=== PATIENT | male | born 1955 | race Native Hawaiian/Other Pacific Islander ===

== ENCOUNTER 2019-08-02 09:36 | Emergency (ER) | payer OTHER ==
[~2019-08-02] VITALS: Ht 185.4 cm; Wt 93.0 kg
[2019-08-02 09:44] VITALS: TEMP 97.9
[2019-08-02 10:15] LABS: PLATELET COUNT 215 K/uL (142-355)
[2019-08-02 10:23] LABS: POTASSIUM 4.2 mmol/L (3.6-5.2); SODIUM 142 mmol/L (136-145)
[2019-08-02] MEDS ORDERED: METF500T PO (11:06)
[2019-08-02] MEDS ORDERED: ZESTRIL40 MG PO (11:06)
[2019-08-02] MEDS ORDERED: GEMFIBROZIL PO (11:08)
[2019-08-02] MEDS ORDERED: AMLODIPINE BESYLATE PO (11:09)
[2019-08-02 12:25] VITALS: BP 147/90
== END 2019-08-02 12:25 | disposition home or self-care (01) ==
LOC: ED 09:36
PROVIDERS: Hospitalist
DX: I10 Essential (primary) hypertension (principal); E11.9 Type 2 diabetes mellitus without complications; J32.9 Chronic sinusitis, unspecified; R00.1 Bradycardia, unspecified
CPT/HCPCS: 36415; 80053; 82550; 83880; 84484; 85027; 85610; 85730; 93005; 96374; 99284; J1885; J2405

== ENCOUNTER 2021-05-22 21:06 | Inpatient (IN) | payer OTHER ==
[~2021-05-22] VITALS: Ht 182.9 cm; Wt 94.5 kg
[2021-05-22 21:06] VITALS: BP 134/68; TEMP 100.4
[~2021-05-22 21:06] MED LIST: AMLODIPINE BESYLATE PO; GEMFIBROZIL PO; METF500T PO; ZESTRIL40 MG PO
[2021-05-22 21:30] VITALS: BP 135/65
[2021-05-22 21:37] LABS: PLATELET COUNT 291 K/uL (142-355)
[2021-05-22 21:42] LABS: POTASSIUM 4.3 mmol/L (3.6-5.2); SODIUM 128 mmol/L (136-145)
[2021-05-22 21:55] LABS: PARTIAL THROMBOPLASTIN TIME 24.1 SECONDS (24.5-33.6)
[2021-05-22 22:00] VITALS: BP 119/67
[2021-05-22] MEDS ORDERED: AMLODIPINE BESYLATE PO (22:10)
[2021-05-22 22:30] VITALS: BP 126/62
[2021-05-22 23:00] VITALS: BP 132/63
[2021-05-22 23:30] VITALS: BP 124/66
[2021-05-23] VITALS (31 sets, daily range): BP systolic 119–153; BP diastolic 54–73; TEMP 97.1–98
[2021-05-24] VITALS (15 sets, daily range): BP systolic 117–151; BP diastolic 55–73; TEMP 154.4
[2021-05-24 05:56] LABS: PLATELET COUNT 277 K/uL (142-355)
[2021-05-24 06:18] LABS: POTASSIUM 4.8 mmol/L (3.6-5.2)
[2021-05-25 05:18] VITALS: BP 102/65
[2021-05-25 05:28] LABS: PLATELET COUNT 277 K/uL (142-355)
[2021-05-25 05:47] LABS: POTASSIUM 5.8 mmol/L (3.6-5.2)
[2021-05-25 06:10] VITALS: BP 98/58
[2021-05-25 07:00] VITALS: BP 110/61; TEMP 97.1
[2021-05-25 07:30] VITALS: BP 108/70
--- NOTE | 2021-05-25 17:00 | NUR ---
REC'D PT VIA STRETCHER FROM ER. PT ON VENT WITH 7.5 ET TUBE, 23 AT LIP LINE. PT HAS DIPRIVAN AT 25MCG, VERSED AT 8ML/HR BOTH INFUSING VIA PUMP INTO RIGHT WRIST. PT HAS VEC 0.5MCG INFUSING VIA PUMP TO LEFT WRIST. PT TRANSFERRED TO BED X4 PERSON ASSIST. NO DISTRESS NOTED.
--- NOTE | 2021-05-25 20:05 | NUR ---
PICC LINE INSERTED BY SANDY MORENO TO R UPPER ARM.
--- NOTE | 2021-05-25 23:18 | NUR ---
SPOKE WITH DR. NELSON, REPORTED THAT PT HAS + HEMOCCULT. NEW TELEPHONE ORDER FOR H&H NOW THEN REPORT RESULTS TO DR. NELSON.
[2021-05-26 02:46] LABS: PLATELET COUNT 306 K/uL (142-355)
[2021-05-26 03:08] LABS: PARTIAL THROMBOPLASTIN TIME 21.6 SECONDS (24.5-33.6)
[2021-05-26 03:47] VITALS: BP 144/72; TEMP 98.5; Ht 182.9 cm; Wt 94.5 kg
--- NOTE | 2021-05-26 05:00 | NUR ---
[id number] PT TO R SIDE, FEET ELEVATED ON PILLOWS, WILL MONITOR, NO ACUTE DISTRESS NOTED.
--- NOTE | 2021-05-26 06:44 | NUR ---
SPOKE WITH DR. NELSON ABOUT PT'S HEART RATE 125-133, AXILLARY TEMP OF 100.4. NEW TELEPHONE ORDER FOR TYLENOL 1000MG IV X 1 DOSE NOW AND BLOOD CULTURES X 2 NOW. R&V.
--- NOTE | 2021-05-26 07:57 | NUR ---
AXILLARY TEMP NOW 99.6.
--- NOTE | 2021-05-26 09:11 | NUR ---
DECREASED FIO2 TO 70% at [address] NELSON.
--- NOTE | 2021-05-26 11:47 | NUR ---
PT SPO2 AT 99% AT FIO2 OF 70%. DECREASED FIO2 TO 65%. SPO2 NOW AT 97-98% WILL CONTINUE TO MONITOR.
[2021-05-26 18:17] LABS: PARTIAL THROMBOPLASTIN TIME 41.2 SECONDS (24.5-33.6)
--- NOTE | 2021-05-27 01:27 | NUR ---
GLUCOSE 377. PATIENT GIVEN 8 UNITS OF REGULAR.
--- NOTE | 2021-05-27 01:56 | NUR ---
PATIENTS CURRENT BLOOD PRESSURE 160/90 WITH HR-110. PATIENT GIVEN LABETALOL 10 MG GIVEN PRN. WILL REASSESS FOR DECREASE IN HR AND BLOOD PRESSURE.
[2021-05-27 02:02] LABS: PARTIAL THROMBOPLASTIN TIME 56.9 SECONDS (24.5-33.6)
--- NOTE | 2021-05-27 02:10 | NUR ---
SODIUM BICARB GIVEN IV PUSH X1 PER . REPEAT ABG. BLOOD PRESSURE READING 72/54 ON ART LINE. AT THE BEDSIDE. NOTIFIED THAT BLOOD SUGARS ARE REMAINING ABOVE 500 WITH LAB CONFIRMATION. NEW ORDERS WERE GIVEN TO CHECK BLOOD SUGARS Q2 AND AND COVER WITH REGULAR INSULIN. STATED TO COVER WITH 15 UNITS OF REGULAR INSULIN IF SUGAR STAYED HIGH.
--- NOTE | 2021-05-27 04:30 | NUR ---
PATIENT NOTED WITH DECREASE O2 SATS IN THE 80'S. PATIENT IN LINE SUCTIONED AND LAVAGED WITH SALINE. SMALL BLOOD CLOTS NOTED IN SUCTION TUBE. PATIENT GIVEN 100% 02 TO INCREASE O2 SATS WITH NO SUCCESS. PATIENT REPOSITIONED ON TO HIS LEFT SIDE BUT 02 SATS STILL STAYING IN THE UPPER 70'S. PATIENTS HR INCREASING IN THE 128-130. EKG ORDERED AND IT READ SINUS TACHYCARDIA HR-127 BORDERLINE PROLONGED QT INTERVAL. SPO2 STILL RUNNING IN THE LOW 80'S. NOTIFIED AT THIS TIME. HERE AND SHE MADE ADJUSTMENTS TO VENT SETTINGS 85%, PEEP 14. PATIENT BAGGED
[2021-05-27 07:55] LABS: PLATELET COUNT 251 K/uL (142-355)
[2021-05-27 08:19] LABS: POTASSIUM 5.9 mmol/L (3.6-5.2)
--- NOTE | 2021-05-27 15:11 | NUR ---
DECREASED O2 TO 60% TOLERATED WELL SPO2 97% HR 100 TOLERATED WELL
--- NOTE | 2021-05-27 16:34 | NUR ---
INCREASED O2 BACK TO 70% DUE TO O2 PER BLOOD GAS
--- NOTE | 2021-05-27 16:51 | NUR ---
INCREASED RR TO 32 PER PHONE CONVERSATION WITH DR NELSON
[2021-05-28 00:11] LABS: POTASSIUM 5.9 mmol/L (3.6-5.2)
--- NOTE | 2021-05-28 01:32 | NUR ---
PATIENTS BLOOD SUGER WAS OVER [address] NELSON NOTIFIED. ORDERED 25UNITS OF REGULAR INSULIN. MD ORDERED BLOOD SUGERS Q2 HOURS. BLOOD SUGER CHECKED AGAIN AFTER ORDER AND IT WAS 533. NEST BLOOD SUGER CHECK AT 0300
[2021-05-28 05:43] LABS: PLATELET COUNT 221 K/uL (142-355)
[2021-05-28 06:12] LABS: POTASSIUM 5.4 mmol/L (3.6-5.2)
--- NOTE | 2021-05-28 10:20 | NUR ---
AT 0935 INCREASDE FIO2 100% PER DR. NELSON.
[2021-05-28 11:37] LABS: POTASSIUM 5.1 mmol/L (3.6-5.2)
[2021-05-28 15:11] LABS: PARTIAL THROMBOPLASTIN TIME 80.2 SECONDS (24.5-33.6)
--- NOTE | 2021-05-28 15:31 | NUR ---
ETT MOVED TO LEFT SIDE OF PT MOUTH. SPO2 ATN 95-96%. RT DECREASED FIO2 FROM 100% TO 90%. SPO2 AT 94%. WILL CONTINUE TO MONITOR TO ENSURE PT CAN TOLERATED WEANING.
--- NOTE | 2021-05-28 19:34 | NUR ---
191-PT SPO2 AT 85-86% INCREASED PEEP TO 12. SPO2 NOW AT 90% 1924-DECREASED RR TO 28 POST ABG.
[2021-05-28 20:15] LABS: PLATELET COUNT 168 K/uL (142-355)
[2021-05-28 20:18] VITALS: BP 101/54; TEMP 98.8
[2021-05-28 20:32] LABS: POTASSIUM 5.2 mmol/L (3.6-5.2); SODIUM 137 mmol/L (136-145)
--- NOTE | 2021-05-28 20:32 | NUR ---
0800 GLUCOSE CHECK 569 20UNITS IV GIVEN PER MD ORDER 0950 [id number] 15 UNITS INSULIN GIVEN IV PER MD ORDERS 1130 FSBS 424 10UNITS INSULIN GIVEN PER MD ORDER 1340 FSBS 332 10UNITS IV GIVEN PER MD ORDERS 1530 FSBS 256 8 UNITS SQ GIVEN PER MD OORDER NEW ORDER GIVEN TO RESUME FSBS WITH SSI .
--- NOTE | 2021-05-28 20:37 | NUR ---
0858 HEPARIN DRIP ADJUSTED PER PROTOCOL ACCORDING TO LAB RESULTS 1100 OPEN AREA TO LEFT BUTTOCK OBSERVED 1.4CMX1.5CM X0.2CM DURING BED BATH. AREA CLEANED AND COVERED PER ORDERS. 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 ORDERS CARRIED OUT. 1900 PT HR IMPROVING HR IS NOW 92
--- NOTE | 2021-05-28 21:20 | NUR ---
REPORTED LABS TO AND NEW ORDERS WERE GIVEN TO GIVE NS 500 ML BOLUS X1 AND MONITOR OUTPUT AT LEAST 30 ML/HR. STOP KETAMINE DRIP AT THIS TIME. REPEAT ABG AT 2200.
--- NOTE | 2021-05-28 22:13 | NUR ---
ABG DONE AND REPORTED TO . FIO2 DECREASED TO 90% AND PEEP DECREASED TO 10.
--- NOTE | 2021-05-28 22:34 | NUR ---
NS BOLUS COMPLETE.
--- NOTE | 2021-05-28 22:44 | NUR ---
PTT 51.3 RETURNED AND NO CHANGES NEEDED ON HEPARIN DRIP.
[2021-05-28 23:41] VITALS: BP 122/59; TEMP 98.8
--- NOTE | 2021-05-29 00:17 | NUR ---
RT AT THE BEDSIDE AND PATIENTS 02 SATS 89%. FIO2 INCREASED 95%. CURRENT HR IS 116-128 ON AMIODORONE 33.3 ML/HR. WILL CONTINUE TO MONITOR.
--- NOTE | 2021-05-29 00:24 | NUR ---
PATIENT GETTING BREATHING TREATMENT AT THIS TIME.
--- NOTE | 2021-05-29 02:11 | NUR ---
PATIENT NOTED WITH LOW 02 SATS ON MONITOR READING 85%. PATIENT REPOSITIONED AND 02 MONITOR READJUSTED WITH NO IMPROVEMENT. PATIENT REMAINS WITH INCREASED HR -122-130BPM. RT NOTIFIED. PATIENT WAS IN LINE SUCTIONED AND NO MUCOUS NOTED ON RETURN. RT IS AT THE BEDSIDE ADJUSTING VENT. PEEP INCREASED TO 18. CURRENT SPO2 94%.
[2021-05-29 03:42] VITALS: BP 117/61; TEMP 98.6
--- NOTE | 2021-05-29 04:09 | NUR ---
AT THE BEDSIDE. HR 130 ON AMIODORONE DRIP 16.6 ML/HR. NEW ORDERS TO GIVE NS 500 ML BOLUS X1. CARDIZEM 5 MG IV PUSH X1. CARDIZEM DRIP ORDERED AT THIS TIME. ABG X1.
--- NOTE | 2021-05-29 04:30 | NUR ---
URINE OUTPUT REPORTED TO --0 ML POST 500 NS BOLUS.
--- NOTE | 2021-05-29 05:12 | NUR ---
LASIX 10 MG GIVEN IVP PER .
[2021-05-29 05:16] LABS: PLATELET COUNT 162 K/uL (142-355)
[2021-05-29 05:38] LABS: POTASSIUM 5.5 mmol/L (3.6-5.2)
--- NOTE | 2021-05-29 08:27 | NUR ---
ETT MOVED TO THE RIGHT SIDE OF PT MOUTH. RT ATTEMPTED TO LAVAGE AND SX PT WITH LITTLE TO NO RETURN ONLY SCANT SALINE RETURN. PIP BETWEEN 53-60. SPO2 AT 93%
--- NOTE | 2021-05-29 09:41 | NUR ---
RT ATTEMPTED TO RETRIEVE SPUTUM SAMPLE TWICE WITH LAVAGE AND SX. RT HAS NO RETURN FOR SAMPLE COLLECTION.
--- NOTE | 2021-05-29 10:15 | NUR ---
DR NELSON HERE AT THIS TIME. PTT RESULTS BACK AT THIS TIME 97.1. PER PROTOCOL HOLD FOR [address] NELSON AWARE. HOLD FOR THIS TIME PER .
--- NOTE | 2021-05-29 11:50 | NUR ---
DR WYNNE AT BS AGAIN AT THIS TIME. NEW ORDERS REC'D TO START LASIX DRIP AND GIVE ALBUMIN X 2. AFTER ALBUMIN INFUSES MAY START IVF'S WITH SODIUM BICARB BACK PER .
--- NOTE | 2021-05-29 12:00 | NUR ---
VERBAL ORDERS REC'D PER MD TO HOLD HEAPRIN AT THIS TIME.
--- NOTE | 2021-05-29 13:00 | NUR ---
NO URINARY OUTPUT NOTED AT THIS TIME. AWARE.
--- NOTE | 2021-05-29 14:00 | NUR ---
DECREASED PEEP TO 16. SPO2 AT 96%.
--- NOTE | 2021-05-29 15:27 | NUR ---
i have called the below facilities to look for a cardiac/dialysis ICU bed: [facility] [phone] no beds [facility] [phone] no beds, check after 9am tomorrow [facility] [phone] at capacity [facility] [phone] [facility] [phone] no beds, 20 in ER, call back matthew [facility] [phone] no beds [facility] [phone] on diversion [facility] [phone] no beds [facility] transfer [facility] [phone] at [facility] x 1 month [place] [phone] [place] [phone]/ fx [phone], at [facility], declined [place] [phone]/ fx [phone], at [facility], declined [facility] [phone] no capacity for out of state transfers, check back in 24 hrs
--- NOTE | 2021-05-29 16:00 | NUR ---
IV PLACED PER Gunnar VERDUZCO RN INTO LEFT FA 20G. ALSO ART LINE PLACED AT THIS TIME PER MD ORDERS. PT TOELRATED WELL. NO PROBLEMS NOTED.
--- NOTE | 2021-05-29 16:36 | NUR ---
i called the below facilities to look for ICU cardiac/dialysis bed for transfer: [facility] [phone] [facility] [phone] left [facility] [phone] no beds, will put on wait list [facility] [phone] on total diversion x 4 weeks [place] [phone] on total diversion [facility] [phone] no capacity [place] [phone] on diversion [facility] [phone] on diversion for everything except Peds
--- NOTE | 2021-05-29 18:05 | NUR ---
PT HAS NO SEDATION GOING AT THIS TIME. PT CURRENTLY HAS LASIX DRIP INFUSING VIA PUMP AT 20ML/HR, AMIODARONE IFUSING VIA PUMP AT 30.6MG/HR ALONG WITH CARDIZEM AT 7MG/HR. ART LINE INTACT TO LEFT ;WRIST ALONG WITH NEW IV 20G TO LEFT LOWER FA AT THIS TIME.
--- NOTE | 2021-05-29 18:18 | NUR ---
DR NELSON CALLED WITH NEW ORDERS TO GIVE ZAROXLYN VIA NGT ONCE AT THIS TIME. WILL PUT ORDER INTO [facility].
[2021-05-29 20:00] VITALS: TEMP 98.4
--- NOTE | 2021-05-29 22:30 | NUR ---
CALLED DR NELSON TO NOTIFY HER THAT PT'S RECTAL TUBE WAS LEAKING AND HAD BEEN REMOVED BY TERMINAL OPERATOR. ALSO INFORMED HER THAT PT'S O2 SATS WERE BETWEEN [address] NELSON SPOKE WITH RESPIRATORY THERAPIST WHO WAS ALSO A PT'S BEDSIDE AND CHANGED PT'S PEEP PRESSURE TO 18.
[2021-05-29 22:45] LABS: PLATELET COUNT 180 K/uL (142-355)
[2021-05-29 22:53] LABS: POTASSIUM 5.9 mmol/L (3.6-5.2)
--- NOTE | 2021-05-29 23:00 | NUR ---
DR NELSON AT BEDSIDE. PT HAS BLOOD CLOTS IN LYNN TUBING WITH NO URINE OUTPUT. LYNN FLUSHED WITH 100 ML OF NS. 100ML OF OUTPUT RETURNED. DISCONTINUED LYNN AND INSERTED NEW ONE PER DR. NELSON'S ORDERS. 18 DANISH LYNN INSERTED AND BULB INFLATED WITH 10 ML OF NORMAL SALINE. PT TOLERATED PROCEDURE WELL. NAD NOTED.
[2021-05-30] VITALS: TEMP 100.7
--- NOTE | 2021-05-30 01:42 | NUR ---
PTS PEEP WAS INCREASED FROM [address] NELSON AT 5949
[2021-05-30 04:00] VITALS: TEMP 98.6
[2021-05-30 06:23] VITALS: BP 90/60
--- NOTE | 2021-05-30 06:30 | NUR ---
MANUAL BP OBTAINED ON PT FROM POPLITE[facility] PULSE. READING OF 90/60. DR NELSON CALLED AND NOTIFIED OF BP. NAD NOTED OF PT.
[2021-05-30 07:17] LABS: PLATELET COUNT 174 K/uL (142-355)
--- NOTE | 2021-05-30 07:30 | NUR ---
ART LINE ZERO AT THIS TIME. ARTERIAL BP 80/42 MAP 51. REPORTED TO
--- NOTE | 2021-05-30 07:45 | NUR ---
ORDERS REC'D TO START DOPAMINE AT 3MIC AT THIS TIME. 0747 DOPAMINE STARTED PER MD ORDERS.
--- NOTE | 2021-05-30 07:58 | NUR ---
INCREASED DOPAMINE 5MCG AT THIS TIME.
--- NOTE | 2021-05-30 11:45 | NUR ---
i have again tried locating an ICU dialysis/cardiac bed for pt at Dr. Arce's request, i have reached out to the below facilities today: [facility] [phone] (all [facility] facilities) no beds avail [facility] [phone] at cap, no beds [facility] [phone] all fac on closure, no list at this time [facility] [phone] NO BEDS, 12 IN ER, CK BACK 3-4PM [facility] [phone] AT [facility], ON THE LIST, CK BACK AT 2-3PM [facility] reg med ctr [phone], no beds, 15 in er, on full diversion [facility] [phone] holding 12 in er, no beds [facility] [phone] at [facility] no beds [place] [phone] no beds, on surge plan [place] [phone] on ICU saturation [place] [phone] not accepting transfers due to cap [facility] [phone] no beds, at [facility], check tomorrow [place] [phone] on total closure
[2021-05-30 13:37] LABS: POTASSIUM 6.5 mmol/L (3.6-5.2)
--- NOTE | 2021-05-30 14:20 | NUR ---
CRITICAL LABS GIVEN TO DR NELSON AT THIS TIME FROM BMP RESULTS.
--- NOTE | 2021-05-30 16:05 | NUR ---
HR NOTED TO BE 118-124 WITH BP 107/54
--- NOTE | 2021-05-30 18:55 | NUR ---
HR NOTED TO BE 110-120 WITH BP OF 100/51 MAP OF 73 SO CARDIZEM 2.5MG GIVEN IVP PER MD ORDERS AT THIS TIME.
[2021-05-30 20:00] VITALS: TEMP 98.4
--- NOTE | 2021-05-30 20:02 | NUR ---
1318 AX TEMP 97.8 1550 AX TEMP 97.6
[2021-05-30 22:13] LABS: POTASSIUM 5.9 mmol/L (3.6-5.2)
--- NOTE | 2021-05-30 23:27 | NUR ---
PT INCONT OF LOOSE STOOL, PT CLEANED AND DRYED, REPOSTIONED.
[2021-05-31 00:01] VITALS: TEMP 98.2
[2021-05-31 04:00] VITALS: TEMP 97.8
--- NOTE | 2021-05-31 05:10 | NUR ---
AM LAB DRAW, BLOOD OBTIANED FROM ARTLINE
[2021-05-31 05:23] LABS: PLATELET COUNT 201 K/uL (142-355)
--- NOTE | 2021-05-31 06:02 | NUR ---
CHEST XRAY DONE
[2021-05-31 06:06] LABS: POTASSIUM 6.2 mmol/L (3.6-5.2)
--- NOTE | 2021-05-31 06:12 | NUR ---
ABG DONE, BLOOD OBTAINED FROM ARTLINE PER RT
--- NOTE | 2021-05-31 19:14 | NUR ---
REPORT RECEIVED FROM DIANA SALDANA RN. PATIENT REMAINS ON VENT AND DRIPS. CURRENT SPO2 81% WITH FIO2 100%. LASIX DRIP COMPLETE. 2000- WHILE ROUNDING ON PCU PATIENTS NURSE CALLED ME TO ICU NURSES STATION AND STATED ICU 2 RHYTHM WAS ABNORMAL. MONITOR SHOWING VTACH HR-213. EPI X1 GIVEN. PATIENT DNR- UNABLE TO DO CPR. NO CHANGES NOTED ON MONITOR. 2009- PATIENTS PUPILS ASSESSED AND THEY WERE NOTED DILATED AND FIXED. PRONOUNCED PATIENT AT THIS TIME. 2015- NOTIFIED FAMILY. 2047-[employer] NOTIFIED. PATIENT RULED OUT FOR ORGAN AND EYE DONATION [place] [facility] # [id number] 2124- POST MORTEM CARE DONE AT THIS TIME. 2199-[facility] NOTIFIED. 2249- [facility] HERE TO HARBORMASTER BODY. PATIENTS YELLOW WEDDING BAND AND WIFES ( SCOOBY BONILLA) WEDDING BAND GIVEN TO STAFF AT THIS TIME. .. 0 ............[phone]
--- NOTE | 2021-05-31 20:38 | NUR ---
0955 DOPAMINE RATE INCREASED TO 7MCG 0955 SODIUM BICARB BOLUS [id number] INFUSED AT THIS TIME 1006 1ST ALBUMIN ADMINISTERED VIA IVPB PER DR. NELSON'S ORDERS 1007 CALCIUM CHLORIDE ADMINISTERED PER PHYSICIAN ORDERS 1350 2ND ALBUMIN BEGAN INFUSING AT THIS TIME WITHOUT DIFFICULTY
== END 2021-05-31 22:50 | disposition expired | DRG 207 ==
LOC: ED 21:06 → PCU 05-25 13:13 → ICU 05-27 13:19
PROVIDERS: Emergency Medicine; Emergency Medicine Emergency Medical Services; ADMIT Family Medicine; ATTEND Family Medicine
PROC: 5A1955Z Respiratory Ventilation, Greater than 96 Consecutive Hours (ICD-10-PCS; principal; 2021-05-25)
PROC: 0BH17EZ Insertion of Endotracheal Airway into Trachea, Via Natural or Artificial Opening (ICD-10-PCS; 2021-05-25)
PROC: 02HV33Z Insertion of Infusion Device into Superior Vena Cava, Percutaneous Approach (ICD-10-PCS; 2021-05-25)
PROC: B548ZZA Ultrasonography of Superior Vena Cava, Guidance (ICD-10-PCS; 2021-05-25)
DX: U07.1 COVID-19 (principal); J12.82 Pneumonia due to coronavirus disease 2019; J96.01 Acute respiratory failure with hypoxia; I21.4 Non-ST elevation (NSTEMI) myocardial infarction; N17.8 Other acute kidney failure; K92.2 Gastrointestinal hemorrhage, unspecified; E87.0 Hyperosmolality and hypernatremia; R79.89 Other specified abnormal findings of blood chemistry; I48.91 Unspecified atrial fibrillation; E11.65 Type 2 diabetes mellitus with hyperglycemia; E87.5 Hyperkalemia; I46.9 Cardiac arrest, cause unspecified
CPT/HCPCS: 31500; 36415; 36569; 36600; 36620; 51702; 80048; 80053; 82272; 82550; 82553; 82728; 82805; 83605; 83735; 83880; 84100; 84484; 85007; 85014; 85018; 85027; 85379; 85610; 85730; 86140; 87040; 87635; 93005; 94002; 94003; 94640; 94664; 94760; 96365; 96366; 96375; 96376; 99285; A4216; C1751; J0132; J0282; J0456; J0610; J1100; J1265; J1335; J1644; J1650; J1815; J1940; J2250; J2543; J3370; J3490; P9047; U0003